=== PATIENT | female | born 1960 | race Caucasian/White ===

== ENCOUNTER 2021-03-09 01:13 | Inpatient (IN) | payer BC ==
[~2021-03-09] VITALS: Ht 170.2 cm; Wt 88.0 kg
[2021-03-09] MEDS ORDERED: normal saline 1000ML IV soln IVB ONE ×2 (02:05)
[2021-03-09] MEDS ORDERED: metoclopramide 5 mg/ml inj IV ONE (02:05)
[2021-03-09] MEDS ORDERED: diphenhydrAMINE 50 mg/ml inj IV ONE (02:05)
[2021-03-09 02:29] LABS: BASOPHILS % (AUTO) 0.5 % (0-1); EOSINOPHILS % (AUTO) 0.3 % (0-6); HEMATOCRIT 41.4 % (35.0-45.0); HEMOGLOBIN 14.1 g/dl (12.0-16.0); LYMPHOCYTES # (AUTO) 0.9 X10'3 (1.1-4.8); LYMPHOCYTES % (AUTO) 9.7 % (21-51); MEAN CORPUSCULAR HEMOGLOBIN 30.9 PG (27.0-31.0); MEAN CORPUSCULAR VOLUME 90.9 FL (78-98); MEAN PLATELET VOLUME 8.4 FL (7.4-10.4); MONOCYTES # (AUTO) 0.5 X10'3 (0-0.9); MONOCYTES % (AUTO) 5.2 % (2-12); NEUTROPHILS % (AUTO) 84.3 % (42-75); PLATELET COUNT 245 X10'3 (140-440); RED BLOOD COUNT 4.56 X10'6 (4.20-5.60); RED CELL DISTRIBUTION WIDTH 13.3 % (11.5-14.5); WHITE BLOOD COUNT 9.5 X10'3 (4.5-11.0)
[2021-03-09 02:31] LABS: URINE HCG NEGATIVE (NEG)
[2021-03-09 02:32] LABS: CLARITY,URINE CLOUDY (Clear); COLOR,URINE YELLOW (Yellow); GLUCOSE, URINE NEGATIVE (Neg); KETONES,URINE 15 mg/dl (Neg); LEUKOCYTE ESTERASE ,URINE NEGATIVE (Neg); NITRITES, URINE NEGATIVE (Neg); OCCULT BLOOD,URINE NEGATIVE (Neg); PH,URINE >=9.0 (4.8-8.0); PROTEIN,URINE TRACE mg/dl (Neg); UROBILINOGEN,URINE 0.2 E.U/dL (0.2-1.0)
[2021-03-09 02:36] LABS: UA COLLECTION TYPE CLN CATCH MIDSTREAM
[2021-03-09 02:39] LABS: AMORPHOUS PHOSPHATES 3+; BACTERIA,URINE NONE SEEN /HPF (Neg); MUCUS STRANDS NONE SEEN /LPF (Neg); RBC,URINE 0-2 /HPF (0-2); SQUAMOUS EPITHELIAL CELL,UR NONE SEEN /LPF (FEW); WBC,URINE 0-4 /HPF (0-4)
[2021-03-09 02:43] LABS: ALANINE AMINOTRANSFERASE 49 U/L (12-78); ALBUMIN 3.7 G/DL (3.4-5.0); ALKALINE PHOSPHATASE 60 IU/L (46-116); AMYLASE 97 U/L (25-115); ANION GAP 12 (8-16); ASPARTATE AMINO TRANSFERASE 39 U/L (10-37); BILIRUBIN,TOTAL 0.5 MG/DL (0.1-1.0); BLOOD UREA NITROGEN 11 MG/DL (7-18); BUN/CREATININE RATIO 12.8 (6.6-38.0); CALCIUM 9.4 MG/DL (8.5-10.1); CHLORIDE 106 MMOL/L (99-107); CREATININE 0.86 MG/DL (0.40-0.90); GLUCOSE 157 MG/DL (70-104); LIPASE 110 U/L (73-393); POTASSIUM 3.3 MMOL/L (3.5-5.1); SODIUM 142 MMOL/L (135-145); TOTAL CARBON DIOXIDE 24.4 MMOL/L (24-32); TOTAL PROTEIN 7.3 G/DL (6.4-8.2); eGFR 67 ML/MIN
[2021-03-09] MEDS ORDERED: morphine 4 MG/ML inj SYRINge IV ONE (02:50)
[2021-03-09] MEDS ORDERED: CARB200T PO (03:03)
[2021-03-09] MEDS ORDERED: GABA-534 PO (03:03)
[2021-03-09] MEDS ORDERED: TRAV5DRO OP (03:04)
[2021-03-09] MEDS ORDERED: OMEP40CA21 PO (03:05)
[2021-03-09] MEDS ORDERED: SENN-283 PO (03:06)
[2021-03-09] MEDS ORDERED: ondansetron/PF 4mg/2ml inj IV PRN (03:55)
[2021-03-09] MEDS ORDERED: potassium Cl 40MEQ/1/2NS 520ml 520 ML IV PRN ×3 (03:55→09:50)
[2021-03-09] MEDS: morphine 2 MG/ML inj. syringe IV PRN ×3 (04:53→15:24)
[2021-03-09] MEDS: potassium Cl 20mEq in NS 1,000 ML IV SCH ×3 (04:53→23:55)
[2021-03-09] MEDS ORDERED: morphine 4 MG/ML inj SYRINge IV PRN (05:10)
[2021-03-09] MEDS ORDERED: ondansetron/PF 4mg/2ml inj IV ONE (05:10)
[2021-03-09] MEDS ORDERED: morphine 2 MG/ML inj. syringe IV ONE (05:15)
[2021-03-09] MEDS: K and/or MAG REPLACEMENT MC SCH ×3 (07:37→20:00)
[2021-03-09] MEDS: pantoprazole 40 MG vial IV SCH (08:03)
[2021-03-09] MEDS: heparin, porcine 5000 units/ml vial SQ SCH ×2 (08:03→21:52)
[2021-03-09] MEDS: ondansetron/PF 4mg/2ml inj IV PRN (09:49)
[2021-03-09] MEDS ORDERED: magnesium 4gm in 100ml NS 100 ML IV PRN (09:50)
[2021-03-09] MEDS ORDERED: magnesium Cl slow-release 64mg tablet PO PRN (09:50)
[2021-03-09] MEDS ORDERED: potassium Cl 20 mEq SR tablet PO PRN ×2 (09:50)
[2021-03-09] MEDS ORDERED: diatrozoate meglu/diatrozoate sod (37% iodine) 120ML oral solution PO ONE (10:15)
--- NOTE | 2021-03-09 18:33 | NUR ---
Called down to get report on patient coming to room 360A. At this time primary substance abuse counselor unable to give a report as had just assumed care. primary substance abuse counselor is going to call back.
--- NOTE | 2021-03-09 19:14 | NUR ---
ASSUMED CARE OF PATIENT IN PATIENT ROOM STAUS CAME AVAILABLE .PT COMFORTABLE AT PAIN 5/10 DENIES NEED FO RMEDICATION ALL OTHER VS SATBLE HYPER BS NOTED REPORT CALLED TO FLOOR SPOKE WITH MICHELLE HENDRICKS PT TAKEN TO FLOOR BY RUTHIE SEGOVIA
--- NOTE | 2021-03-09 19:30 | NUR ---
Patient arrived to floor via W/C. Alert and oriented, in no distress. Patient changed into gown and pants and settled in to bed.
[2021-03-09 19:45] VITALS: BP 143/93
[2021-03-09] MEDS: SUMAtriptan 25 MG tablet PO PRN (20:08)
[2021-03-09] MEDS ORDERED: latanoprost 0.005% 2.5ml ophthalmic drops EACHEYE SCH (21:00)
[2021-03-10] VITALS: BP 120/57
[2021-03-10] MEDS: potassium Cl 20mEq in NS 1,000 ML IV SCH (01:23)
[2021-03-10 05:56] LABS: BASOPHILS # (AUTO) 0.1 X10'3 (0-0.2); BASOPHILS % (AUTO) 0.8 % (0-1); EOSINOPHILS # (AUTO) 0.1 X10'3 (0-0.9); HEMATOCRIT 34.5 % (35.0-45.0); HEMOGLOBIN 11.8 g/dl (12.0-16.0); LYMPHOCYTES # (AUTO) 2.1 X10'3 (1.1-4.8); LYMPHOCYTES % (AUTO) 30.9 % (21-51); MEAN CORPUSCULAR HEMOGLOBIN 31.4 PG (27.0-31.0); MEAN CORPUSCULAR HGB CONC 34.1 g/dL (33.0-36.5); MEAN CORPUSCULAR VOLUME 92.1 FL (78-98); MEAN PLATELET VOLUME 7.8 FL (7.4-10.4); MONOCYTES # (AUTO) 0.8 X10'3 (0-0.9); MONOCYTES % (AUTO) 10.9 % (2-12); NEUTROPHILS # (AUTO) 3.8 X10'3 (1.8-7.7); NEUTROPHILS % (AUTO) 55.4 % (42-75); PLATELET COUNT 172 X10'3 (140-440); RED BLOOD COUNT 3.75 X10'6 (4.20-5.60); RED CELL DISTRIBUTION WIDTH 13.6 % (11.5-14.5); WHITE BLOOD COUNT 6.9 X10'3 (4.5-11.0)
[2021-03-10 06:00] LABS: ALANINE AMINOTRANSFERASE 58 U/L (12-78); ALBUMIN 2.7 G/DL (3.4-5.0); ALKALINE PHOSPHATASE 47 IU/L (46-116); ANION GAP 6 (8-16); ASPARTATE AMINO TRANSFERASE 47 U/L (10-37); BILIRUBIN,TOTAL 0.4 MG/DL (0.1-1.0); BLOOD UREA NITROGEN 7 MG/DL (7-18); BUN/CREATININE RATIO 10.4 (6.6-38.0); CALCIUM 7.8 MG/DL (8.5-10.1); CHLORIDE 111 MMOL/L (99-107); CREATININE 0.67 MG/DL (0.40-0.90); GLUCOSE 84 MG/DL (70-104); MAGNESIUM 1.7 MG/DL (1.5-2.4); PHOSPHORUS 2.9 MG/DL (2.3-4.5); POTASSIUM 4.2 MMOL/L (3.5-5.1); SODIUM 144 MMOL/L (135-145); TOTAL CARBON DIOXIDE 26.7 MMOL/L (24-32); TOTAL PROTEIN 5.5 G/DL (6.4-8.2); eGFR 90 ML/MIN
--- NOTE | 2021-03-10 06:35 | NUR ---
Problems reprioritized. Patient report given, questions answered & plan of care reviewed with Gabriele RN.
[2021-03-10 07:00] VITALS: BP 127/77
[2021-03-10] MEDS: K and/or MAG REPLACEMENT MC SCH ×2 (08:00)
[2021-03-10] MEDS: pantoprazole 40 MG vial IV SCH (08:01)
[2021-03-10] MEDS: heparin, porcine 5000 units/ml vial SQ SCH (08:01)
[2021-03-10] MEDS: ondansetron/PF 4mg/2ml inj IV PRN (10:20)
[2021-03-10 11:00] VITALS: BP 115/51
[2021-03-10] MEDS: SUMAtriptan 25 MG tablet PO PRN (12:34)
--- NOTE | 2021-03-10 12:37 | NUR ---
Imitrex given to patient for migraine. Patient's own eye drop that was stored in hospital pharmacy was returned to patient. Instructed patient to eat small bite at a time.
--- NOTE | 2021-03-10 13:25 | NUR ---
Discharge instructions given to patient, patient verbalized understanding of all instructions made. Peripheral IV catheter removed, tip intact. Instructed patient to ensure she has all her belongings with her before leaving. Patient's at bedside while I was giving discharge instructions to patient. Patient was advised to keep full liquid diet for now and to advance as tolerated. Patient was advised to follow up with her PCP in 2-[address] Elizabeth's discharge instruction.
== END 2021-03-10 13:33 | disposition home or self-care (01) | DRG 389 ==
LOC: ER 01:15 → UNDOADMIN 03:51 → ED HOLD 03:51 → SUR 3N 19:30
PROVIDERS: ADMIT Internal Medicine; ATTEND Family Medicine
DX: K56.609 Unspecified intestinal obstruction, unspecified as to partial versus complete obstruction (principal); R18.8 Other ascites; G50.0 Trigeminal neuralgia; Z98.84 Bariatric surgery status; Z88.2 Allergy status to sulfonamides; Z79.899 Other long term (current) drug therapy
CPT/HCPCS: 36415; 74018; 74176; 80053; 81001; 81025; 82150; 83690; 83735; 84100; 84145; 85025; 87081; 96374; 96375; 99285; C9113; G0378; J1200; J1644; J2270; J2405; J2765; J3480; J7030; Q9963